=== PATIENT | female | born 1995 | race Caucasian/White ===

== ENCOUNTER 2016-11-05 08:26 | Emergency (ER) | payer BC ==
[2016-11-05 09:38] LABS: ABSOLUTE EOSINOPHILS # (AUTO) 0.1 10^3/uL (0.0-0.6); ABSOLUTE MONOCYTES (AUTO) 0.5 10^3/uL (0.1-1.4); ABSOLUTE NEUT (AUTO) 4.1 10^3/uL (1.7-8.2); BASOPHILS % (AUTO) 0.7 % (0-2); EOSINOPHILS % (AUTO) 1.3 % (0-6); HEMATOCRIT 41.6 % (36.0-47.0); HEMOGLOBIN 14.1 g/dL (12.0-15.5); HGB HCT DIFFERENCE 0.7; LYMPHOCYTES % (AUTO) 29.5 % (13-45); MEAN CORPUSCULAR HEMOGLOBIN 28.4 pg (27.0-33.4); MEAN CORPUSCULAR HGB CONC 33.8 g/dL (32.0-36.0); MEAN CORPUSCULAR VOLUME 84 fl (80-97); MONOCYTES % (AUTO) 7.7 % (3-13); RED BLOOD COUNT 4.95 10^6/uL (3.72-5.28); SEGMENTED NEUTROPHILS % (AUTO) 60.8 % (42-78); WHITE BLOOD COUNT 6.7 10^3/uL (4.0-10.5)
[2016-11-05 09:55] LABS: AMORPHOUS SEDIMENT,URINE TRACE /HPF; APPEARANCE,URINE CLOUDY; BILIRUBIN,URINE NEGATIVE (NEGATIVE); GLUCOSE, URINE NEGATIVE (NEGATIVE); KETONES,URINE NEGATIVE (NEGATIVE); LEUKOCYTE ESTERASE,URINE NEGATIVE (NEGATIVE); NITRITE,URINE NEGATIVE (NEGATIVE); PROTEIN,URINE NEGATIVE (NEGATIVE); URINE SPECIFIC GRAVITY 1.015; UROBILINOGEN,URINE NEGATIVE mg/dL (<2.0)
[2016-11-05 09:59] LABS: ALANINE AMINOTRANSFERASE 30 U/L (9-52); ALBUMIN 4.2 g/dL (3.5-5.0); ALKALINE PHOSPHATASE 74 U/L (38-126); ANION GAP 10 (5-19); ASPARTATE AMINO TRANSFERASE 32 U/L (14-36); BILIRUBIN,TOTAL 0.6 mg/dL (0.2-1.3); BLOOD UREA NITROGEN 9 mg/dL (7-20); CALCIUM 9.4 mg/dL (8.4-10.2); CARBON DIOXIDE 25 mmol/L (22-30); CHLORIDE 107 mmol/L (98-107); CREATININE RESULT 0.83 mg/dL (0.52-1.25); GLUCOSE 83 mg/dL (75-110); LIPASE 166.6 U/L (23-300); POTASSIUM 4.1 mmol/L (3.6-5.0); SODIUM 141.7 mmol/L (137-145); TOTAL PROTEIN 7.4 g/dL (6.3-8.2)
--- NOTE | 2016-11-05 10:26 | ER Document Report ---
ED GI/ - General Mode of Arrival: Ambulatory Information source: Patient TRAVEL OUTSIDE OF THE [place] IN LAST 30 DAYS: No - HPI Patient complains to provider of: Abdominal pain Onset: Other - see HPI notes Quality of pain: Sharp <LATRELL NICKERSON - Last Filed: 11/05/16 11:12> <CARMENPRITESH - Last Filed: 11/05/16 14:34> - General Chief Complaint: Abdominal Pain Stated Complaint: ABDOMINAL PAIN Notes: Patient is a 21-year-old female presenting to the emergency department with complaints of abdominal pain. Patient states that she has had this "tearing and sharp" abdominal pain since 3 days ago and it progressed today. Patient states that her pain occurs when she is standing up, sitting down, or bearing down. Patient states that yesterday she had some dizziness with her pain. Patient just finished her menstrual cycle on Thursday 11/02. Patient states she is sexually active but denies any pain while having sex. Patient she does not have any pain with palpation but only when she moves. Patient states her pain is also present when she is laying down. Patient has no known allergies. (LATRELL NICKERSON) - Related Data Allergies/Adverse Reactions: No Known Allergies Allergy (Unverified 11/05/16 08:33) Past Medical History - General Information source: Patient - Social History Smoking Status: Never Smoker Chew tobacco use (# tins/day): No Frequency of alcohol use: None Family History: None Patient has suicidal ideation: No Patient has homicidal ideation: No Past Surgical History: Reports: Hx Abdominal Surgery - Gastric sleeve, pilonidal cyst, Hx Tonsillectomy <LATRELL NICKERSON - Last Filed: 11/05/16 11:12> Review of Systems - Review of Systems Constitutional: No symptoms reported EENT: No symptoms reported Cardiovascular: No symptoms reported Respiratory: No symptoms reported Gastrointestinal: See HPI, Abdominal pain Genitourinary: No symptoms reported Female Genitourinary: No symptoms reported Musculoskeletal: No symptoms reported Skin: No symptoms reported Hematologic/Lymphatic: No symptoms reported Neurological/Psychological: No symptoms reported -: Yes All other systems reviewed and negative <LATRELL NICKERSON - Last Filed: 11/05/16 11:12> Physical Exam - Vital signs Interpretation: Normal - General General appearance: Appears well, Alert In distress: Mild - HEENT Head: Normocephalic, Atraumatic Eyes: Normal Pupils: PERRL Mucous membranes: Moist - Respiratory Respiratory status: No respiratory distress Chest status: Nontender Breath sounds: Normal Chest palpation: Normal - Cardiovascular Rhythm: Regular Heart sounds: Normal auscultation Murmur: No - Abdominal Inspection: Normal Distension: No distension Bowel sounds: Normal Tenderness: Nontender Organomegaly: No organomegaly - Back Back: Normal, Nontender - Extremities General upper extremity: Normal inspection, Nontender, Normal color, Normal ROM , Normal temperature General lower extremity: Normal inspection, Nontender, Normal color, Normal ROM , Normal temperature, Normal weight bearing. No: Edwige's sign - Neurological Neuro grossly intact: Yes Cognition: Normal Orientation: AAOx4 Kathya Coma Scale Eye Opening: Spontaneous Kathya Coma Scale Verbal: Oriented Kathya Coma Scale Motor: Obeys Commands Kathya Coma Scale Total: 15 Speech: Normal - Psychological Associated symptoms: Normal affect, Normal mood - Skin Skin Temperature: Warm Skin Moisture: Dry Skin Color: Normal <LATRELL NICKERSON - Last Filed: 11/05/16 11:12> - Genitourinary External exam: Normal Speculum exam: Vaginal discharge - White clumpy discharge, no blood Vaginal bleeding: None Bimanuel exam: Normal <PRITESH MORALES - Last Filed: 11/05/16 14:34> - Vital signs Vitals: Temp Pulse Resp BP Pulse Ox 97.7 F 67 16 124/82 99 11/05/16 08:34 11/05/16 08:34 11/05/16 08:34 11/05/16 08:34 11/05/16 08:34 (LATRELL NICKERSON) (PRITESH MORALES) Course - Laboratory Result Diagrams: 11/05/16 09:25 11/05/16 09:25 <LATRELL NICKERSON - Last Filed: 11/05/16 11:12> - Laboratory Result Diagrams: 11/05/16 09:25 11/05/16 09:25 <PRITESH MORALES - Last Filed: 11/05/16 14:34> - Re-evaluation Re-evalutation: 11/05/16 10:34 Patient presents stating that she's had 3 days of a tearing pelvic pain that is worse with movement. She says sometimes the pain is worse than others. It's not one side or the other seems to be straight across. She denies any vaginal discharge or bleeding. Denies any burning or itching. Denies any urinary frequency or dysuria or hematuria. No other associated symptoms. She denies any history of this. . She is not . Her abdominal exam is unremarkable. Set up for pelvic and ultrasound imaging to rule out torsion. We' ll try anti-inflammatories for pain management. 11/05/16 14:33 Patient workup has been unremarkable. Her pelvic exam was normal. The wet prep is negative. Pt is nontoxic appearing. She appears to be comfortable. I will have patient follow up with [facility]. (PRITESH MORALES) - Vital Signs Vital signs: Temp Pulse Resp BP Pulse Ox 97.7 F 67 16 124/82 99 11/05/16 08:34 11/05/16 08:34 11/05/16 08:34 11/05/16 08:34 11/05/16 08:34 (LATRELL NICKERSON) (PRITESH MORALES) - Laboratory Laboratory results interpreted by me: 11/05/16 09:25 Urine Blood SMALL H (LATRELL NICKERSON) (PRITESH MORALES) Discharge <LATRELL NICKERSON - Last Filed: 11/05/16 11:12> <PRITESH MORALES - Last Filed: 11/05/16 14:34> - Discharge Clinical Impression: Pelvic pain Condition: Stable Disposition: HOME, SELF-CARE Additional Instructions: Drink plenty fluids to stay well hydrated. Please follow-up with your PATTERN ATTENDANT. Pelvic Pain There are many causes of pain in the pelvic area. The cause could be the tubes, ovaries, uterus, intestines, appendix, pelvic muscles and connective tissue, or the urinary tract. The cause of your pelvic pain is not clear. However, it seems safe to treat you outside the hospital. If the pain sounds like a temporary problem, we sometimes wait to see if it goes away. Other patients may need additional tests, such as pelvic ultrasound or cultures. Conditions may change. Call us or come back for reexamination if any problems occur, such as: (1) Pain that becomes more severe, steady, or becomes concentrated in one specific area. Also, pain that is more severe with movement or coughing. (2) Vomiting that persists or becomes more frequent. (3) Blood in the vomitus, urine, or bowel movements. Blood in the stool may have a tarry or black appearance. (4) Shaking chills or fever greater than 100 degrees. (5) The abdomen becomes more distended or swollen. (6) Bowel movements cease. (7) Heavy vaginal bleeding. Prescriptions: Naproxen 500 mg PO BID #30 tablet Scribe Attestation: 11/05/16 14:02 I personally performed the services described in the documentation, reviewed and edited the documentation which was dictated to the scribe in my presence, and it accurately records my words and actions. (PRITESH MORALES) Scribe Documentation - Scribe Written by Scribe:: Latrell Nickerson 11/05/16 11:10 acting as scribe for :: Golden <LATRELL NICKERSON - Last Filed: 11/05/16 11:12>
[2016-11-05] MEDS ORDERED: KETOROLAC TROMETHAMINE INJ/PF 30 MG/1 ML SDV IV ONE (10:35)
[2016-11-05 15:31] LABS: CHLAM PCR NOT DETECTED (NOT DETECT)
[2016-11-05 15:33] VITALS: BP 117/73
== END 2016-11-05 15:30 | disposition home or self-care (01) ==
LOC: ER 08:26
DX: R10.2 Pelvic and perineal pain (principal); Z98.84 Bariatric surgery status
CPT/HCPCS: 99284; 96374; 36415; 87210; 83690; 85025; 81025; 80053; 81001; 87491; 87591; 76830; 93976; J1885